=== PATIENT | male | born 1935 | race Caucasian/White ===

== ENCOUNTER 2016-07-15 23:03 | Inpatient (IN) | payer OTHER, BC ==
[~2016-07-15] VITALS: Ht 182.9 cm; Wt 127.8 kg
--- NOTE | ~2016-07-15 | EKG ---
[address] [address] ELECTROCARDIOGRAM REPORT Name: CAYLA ARCEO Room #: 213-P ADM IN M.R.#: [id number] Admission: 07/16/16 Attend Phys: Arabella Scanlon Discharge: Date of : 39 Report #: [id number] THIS REPORT FOR: //name// [facility] Test Date: 2016-07-16 Test Time: 06:03:37 Pat Name: CAYLA ARCEO Department: Room: 213 P Gender: M Manager Quality: JOE : 1935 Requested By: Peyton Whyte Order Number: [id number] MD: Gilmer Robert Measurements Intervals [place] Rate: 52 P: 7 NH: 190 QRS: -29 QRSD: 101 T: -16 QT: 451 QTc: 420 Interpretive Statements Sinus rhythm Borderline left axis deviation Abnormal R-wave progression, early transition Borderline T abnormalities, inferior leads No previous ECG available for comparison Electronically Signed On 07-16-2016 8:24:15 EMAIL PRODUCTION SPECIALIST by Gilmer Robert [email or web address] <ELECTRONICALLY SIGNED> By: Gilmer Robert MD 07/16/16 0824 2 2 Gilmer Robert MD /MARY
--- NOTE | ~2016-07-15 | H ---
[facility] [place] [address] HISTORY AND PHYSICAL Name: CAYLA ARCEO Room #: 213-P ADM IN M.R.#: [id number] Admission: 07/16/16 Attend Phys: Arabella Scanlon Discharge: Date of : 39 Report #: [id number] THIS REPORT FOR: //name// CC: Jian Salcedo DATE OF SERVICE: 07/16/2016 ATTENDING PHYSICIAN: Dr. Scanlon. PRIMARY CARE PHYSICIAN: Jian Conley. CHIEF COMPLAINT: Elevated troponin. HISTORY OF PRESENT ILLNESS: The patient is a 81-year-old male who initially presented to [facility] yesterday after having recent episode of some retrosternal chest pain. He thought it was related to a chest cold. He has been having a cough for the last 2 days and has been taking some DayQuil and take well and NyQuil. The pain was not necessarily worse with coughing. He did have an episode a sweating but he thought it was may the start of a fever. He denies any associated shortness of breath, nausea or vomiting. This pain resolved, but he wanted to make sure he was getting pneumonia, so he went to [facility] and was noted to have a mildly elevated troponin. He initially declined transfer or further cardiology evaluation. His next 2 sets of troponins had been increasing, the second was 1.92 and then the third was 3.42. He has continued to be chest pain free, he was started on a heparin drip as well as the nitroglycerin drip and eventually he did agree to get transferred here for cardiac evaluation. He denies any history of coronary artery disease or ever seeing a [facility] for having any cardiac testing. He was last seen here at [facility] in 04/2016 for a large kidney stone. He ended up having a stent placement. He was treated for acute on chronic renal failure as well. His creatinine had been up to 2.9. His metformin, lisinopril and hydrochlorothiazide were all discontinued. He is now resting comfortably and agreeable to further cardiac workup. PAST MEDICAL HISTORY: Hyperlipidemia, diabetes, hypothyroidism, chronic kidney disease stage 3, hypertension, GERD, obesity, obstructive sleep apnea for which he does not wear CPAP, nephrolithiasis, arthritis. PAST SURGICAL HISTORY: Left total knee replacement, inguinal hernia repair, eyelid surgery, right ureteral stent placement, rectal gland removal, TNA, and hand and finger reattachment, and pilonidal cyst drainage. ALLERGIES: None. [facility] [address] [place] [address] HISTORY AND PHYSICAL Name: CAYLA ARCEO Room #: 213-P [facility] IN M.R.#: [id number] Admission: 07/16/16 Attend Phys: Arabella Scanlon Discharge: Date of : 39 Report #: [id number] HOME MEDICATIONS: Fish oil one capsule daily, amlodipine 5 mg daily, Januvia 25 mg daily, and levothyroxine 200 mcg daily. SOCIAL HISTORY: The patient is retired and contraction worker. He is , but his lives at a long-term care facility after stroke. He currently lives with his son and [id number]. He is a never smoker, denies any alcohol use. FAMILY HISTORY: His father at the age of 67, presumably from an [place], otherwise no other family members have had heart disease. REVIEW OF SYSTEMS: Twelve point review of systems was reviewed with the patient, otherwise negative unless stated in the HPI. PHYSICAL EXAMINATION: GENERAL: The patient is an alert, obese male in no acute distress. VITAL SIGNS: Temperature 36.7, heart rate 55, respirations 24, blood pressure is 172/117, oxygen 93% on room air. HEENT: PERRLA. Sclerae are nonicteric. Oral mucosa is pink and moist. NECK: Supple, no JVD noted. CARDIOVASCULAR: Normal S1, S2. No murmurs, rubs or gallops. RESPIRATORY: Breath sounds are clear bilateral upper lobes. He is a very diminished absent breath sounds in the left lower lobe. Breathing is nonlabored. ABDOMEN: Obese, soft, nontender, nondistended with positive bowel sounds. VASCULAR: 1+ bilateral ankle edema. Pedal pulses are 1+. NEUROLOGIC: The patient is alert and oriented x 3. Speech is clear. He is answering questions appropriately and following commands. No focal weakness noted. LABORATORY DATA AND DIAGNOSTICS: WBC is 10.4, hemoglobin is 14.7, platelets 209. Sodium 138, potassium 4.7, BUN 24, creatinine 1.8, glucose is 260, LFTs are within normal limits. Troponins at [place] were 0.17, 1.9 and 3.42. An EKG was showing sinus bradycardia, rate of 53, no ischemic changes. Chest x-ray showed an elevation of the left hemidiaphragm. No infiltrates. ASSESSMENT AND PLAN: 1. Non-ST elevation myocardial infarction. The patient was transferred here for further cardiac evaluation. We will continue with nitroglycerin drip and heparin drip and check another troponin and EKG this morning and consult cardiology for possible cardiac catheterization, he does have mild chronic kidney disease, so we will gently hydrate prior to catheterization. 2. Diabetes type 2. Blood sugars are elevated. We will check hemoglobin A1c. He had been on Januvia, which unfortunately we cannot continue here because it is nonformulary, we will add a sliding scale insulin and check blood sugars a.c. [facility] [place] [address] HISTORY AND PHYSICAL Name: CAYLA ARCEO Room #: 213-P ADM IN M.R.#: [id number] Admission: 07/16/16 Attend Phys: Arabella Scanlon Discharge: Date of : 37 Report #: [id number] and at bedtime. 3. Chronic kidney disease stage III. Creatinine is 1.8. Previously was 2.9 in April and meds were changed so it is improving, we will follow labs. 4. Hypothyroidism. Continue Synthroid at home. 5. Hyperlipidemia. Check a lipid panel and continue home medications. 6. Obesity. 7. Hypertension. Blood pressure is stable. Continue Norvasc at home. 8. Deep vein thrombosis prophylaxis. Continue with Lovenox. We will continue to follow the patient closely throughout the hospitalization and make changes based on clinical status. <ELECTRONICALLY SIGNED> By: ROMERO Jean Baptiste 07/18/16 0646 0159 [id number] ROMERO Jean Baptiste /nt
--- NOTE | ~2016-07-15 | HC ---
[facility] [place] [address] CONSULTATION Name: CAYLA ARCEO Room #: 213-P ADM IN M.R.#: [id number] Admission: 07/16/16 Attend Phys: Arabella Collins Idanialupe Discharge: Date of : 37 Report #: [id number] THIS REPORT FOR: //name// CC: Jian Williameulalia Scanlon DATE OF SERVICE: 07/16/2016 REASON FOR CONSULTATION: Chest pain, elevated troponin. HISTORY OF PRESENT ILLNESS: This is a very pleasant 81-year-old male patient who was transferred from [facility] for elevated troponin. The patient was transferred for intermittent chest discomfort, but upon questioning he only had one episode of chest discomfort on Thursday of this week. He says he was lying in bed in the morning when he noted this chest discomfort that was a pressure sensation lasted only a few minutes, but did became diaphoretic. He did not have any increasing dyspnea during that episode, but the discomfort resolved. Subsequent to that, he has noted that he was having some increasing respiratory-type symptoms with coughing, nonobstructive cough, some chills, and some sweatiness. He is concerned because every winter he does develop pneumonic process and went and sought medical attention. He denies any exertional tightness, heaviness, fullness, orthopnea, PND, syncope, or near syncope. He does describe this dyspepsia that he has had in the past and states that it occurs intermittently but occurs at activity, mostly although it does occur postprandially sometimes. No dependent or nondependent is noted. He denied any chest discomfort since Thursday and he did have a rise in his troponins at [facility] from 1.92 to 3.42 respectively. Initially, he denied and refused cardiac evaluation to the enzymes alpa. PAST MEDICAL HISTORY: Significant for: 1. Hypothyroidism. 2. Hypertension. 3. Dyslipidemia. 4. Chronic kidney disease stage 3. 5. Diabetes mellitus. 6. Gastroesophageal reflux disease. 7. Obstructive sleep apnea and does use CPAP. 8. History of nephrolithiasis. 9. Degenerative joint disease. 10. Obesity. ALLERGIES: No known drug allergies. MEDICATIONS: At home are Januvia, Synthroid, fish oil, Norvasc, atorvastatin, metoprolol, amlodipine, insulin, and pantoprazole. [address] [address] CONSULTATION Name: CAYLA ARCEO Room #: 213-P [facility] IN .R.#: [id number] Admission: 07/16/16 Attend Phys: Arabella Scanlon Discharge: Date of : 39 Report #: [id number] PAST SURGICAL HISTORY: Significant for: 1. Total left knee replacement some 15 years ago. 2. Inguinal hernia repair. 3. Eyelid surgery. 4. Right ureteral stent placement. 5. Rectal gland removal. 6. T and A. 7. Hand and finger reattachment due to trauma. 8. Appendectomy. SOCIAL HISTORY: The patient does not smoke, consume alcohol. He does not follow a particular exercise regimen or dietary restriction. He does live with family. REVIEW OF SYSTEMS: Except for symptoms previously mentioned and those commensurate with comorbid state, the 10-point review of system is negative. LABORATORY DATA: Demonstrates a potassium of 4.6. BUN and creatinine of 26 and 1.8. Total cholesterol 164, LDL 98, HDL 42, and triglycerides of 123. H and H is 13.3 and 40.0 with a platelet count of 188,000. PHYSICAL EXAMINATION: GENERAL: Well-developed, well-nourished white male, resting comfortably in no acute distress. VITAL SIGNS: Noted and reviewed in the chart. HEENT: Normocephalic, atraumatic. Pupils are equal, round, reactive to light and accommodation. Extraocular muscles are intact. Sclerae and conjunctivae are anicteric. NECK: JVD is normal. Carotid upstrokes are bilaterally symmetrical. No bruits are heard. No thyromegaly. No lymphadenopathy. LUNGS: Clear to auscultation. No wheezes, rhonchi or crackles. No CVA tenderness. CARDIAC: Demonstrates a regular rhythm. Normal first and second heart sounds. No ventricular or atrial gallops, no rubs noted. No murmurs. No lifts or heaves, PMI normal. ABDOMEN: Soft, nontender, nondistended. Normal bowel sounds. EXTREMITIES: Without cyanosis, clubbing or edema. Distal pulses are intact. DTR symmetrical. NEUROLOGIC: Cranial nerves 2-12 are grossly normal and symmetrical. PSYCHIATRIC: Alert, oriented with normal affect. SKIN: Warm and dry. ELECTROCARDIOGRAM: Normal sinus rhythm, nonspecific ST-T wave changes. IMPRESSION AND PLAN: 1. Non-ST segment elevation myocardial infarction, currently asymptomatic, on [address] [address] CONSULTATION Name: CAYLA ARCEO Room #: 213-P ADM IN M.R.#: [id number] Admission: 07/16/16 Attend Phys: Arabella Scanlon Discharge: Date of : 39 Report #: [id number] heparin and IV nitroglycerin. I have discussed the options with him and even though he does have chronic kidney disease, it is advantageous to proceed invasively so we can delineate his coronary artery. The risks, complications, and alternatives of catheterization, angioplasty, and conscious sedation were discussed with the patient who understands and wishes to proceed. 2. Diabetes mellitus as per primary care, but we will monitor closely his status and his kidney function. We will hydrate pre and post-procedure. 3. Chronic kidney disease as above. 4. Hypertension seems to be well-controlled according to the patient at home. We will need to monitor closely for now and see whether he truly has good control on this. 5. Dyslipidemia. We discussed the [place] [employer] step 1 diet. In view of the fact that he is diabetic, we also discussed the Cut Off Diet, which is combination of the [place] Diabetic and the [place] [employer] recommendations. <ELECTRONICALLY SIGNED> By: Michel Shine MD 07/17/16 1133 10 0042 Michel Shine MD /nt
--- NOTE | ~2016-07-15 | 2DMMODE ---
[facility] [place] [address] 2 D/M-MODE ECHOCARDIOGRAM Name: CAYLA ARCEO Room #: 213-P ADM IN M.R.#: [id number] Admission: 07/16/16 Attend Phys: Arabella Emerson Discharge: Date of : 39 Date of Service: 07/16/16 1046 Report #: [id number] THIS REPORT FOR: //name// Transthoracic Echocardiography Ordering physician: Rosalind Parnell Referring physician: Rosalind Parnell Cena: KATHLEEN Carlos Indications/History: Non-STEMI, HTN, DM, HLP. BP: 171 / HR: 55bpm Height: 72in Weight: 270.4lb 91 Study data: M-mode, complete 2D, complete spectral Doppler, and color Doppler. Location: Bedside. Routine. Image quality was adequate. The study was technicallydifficult due to body habitus. No measurements were obtainable. The parasternal window was low, thus no M-mode measurements were recorded. 2D measurements Normal Normal LVID ED 36-57 IVS ED 6-11 LVID ES 23-40 LVPW ED 6-11 LA volume index 24ml/m2 16-28 AoRoot diam ED 21-37 LVOT diameter 18-23 Findings: Left ventricle: The cavity size was normal. Wall thickness was normal. Systolic function was normal. The estimated ejection fraction was in the range of 55% to 60%. Wall motion was normal. Right ventricle: The cavity size was normal. Systolic function was normal. Right atrium: The atrium was normal in size. Left atrium: The atrium was normal in size. Volume index: 24ml/m2 (S). Aortic valve: Mildly calcified leaflets. Doppler: There was no stenosis. No regurgitation. Peak velocity: [facility] [address] [place] [address] 2 D/M-MODE ECHOCARDIOGRAM Name: CAYLA ARCEO Room #: 213-P ADM IN M.R.#: [id number] Admission: 07/16/16 Attend Phys: Arabella Emerson Discharge: Date of : 39 Date of Service: 07/16/16 1046 Report #: [id number] 137cm/s (S). Mitral valve: Structurally normal valve. Doppler: There was no evidence for stenosis. No regurgitation. Peak E-wave velocity: 59.1cm/s. Peak A-wave velocity: 93.7cm/s. Tricuspid valve: Structurally normal valve. Doppler: There was no evidence for stenosis. No regurgitation. Pulmonic valve: Structurally normal valve. Doppler: There was no evidence for stenosis. No regurgitation. Pericardium: There was no pericardial effusion. Aorta: Aortic root: The aortic root was normal in size. Pulmonary artery: Pressure could not be reliably determined due to minimal or absent tricuspid insufficiency jet, but pulmonary hypertension was not suggested. Diastolic function: Doppler parameters are consistent with abnormal left ventricular relaxation (grade 1 diastolic dysfunction). Systemic veins: Inferior vena cava: The vessel was normal in size; the respirophasic diameter changes were in the normal range (= 50%). Conclusions 1. Left ventricle: The cavity size was normal. Wall thickness was normal. Systolic function was normal. The estimated ejection fraction was in the range of 55% to 60%. 2. Aortic valve: Mildly calcified leaflets. 3. Mitral valve: Structurally normal valve. No regurgitation. 4. Tricuspid valve: Structurally normal valve. 5. Pulmonary arteries: Pressure could not be reliably determined due to minimal or absent tricuspid insufficiency jet, but pulmonary hypertension was not suggested. <ELECTRONICALLY SIGNED> By: Michel Shine MD 07/16/16 1244 1046 1244 Michel Shine MD /masha
--- NOTE | ~2016-07-15 | CATHLAB ---
[facility] [place] [address] INVASIVE PROCEDURE REPORT Name: CAYLA ARCEO Room #: 213-P [facility] IN M.R.#: [id number] Admission: 07/16/16 Attend Phys: Arabella Emerson Discharge: Date of : 39 Date of Service: 07/16/162050 Report #: [id number] THIS REPORT FOR: //name// CC: Jian Scanlon DATE OF SERVICE: 07/16/2016 PROCEDURES: 1. Left heart catheterization. 2. Selective left and right coronary angiography. 3. Measurement of left ventricular end diastolic pressures. 4. Supervision of conscious sedation. RECORDS MANAGEMENT ASSISTANT: Michel Shine M.D. INDICATIONS: This 81-year-old male patient with significant cardiovascular risk factors and a non-ST segment elevation myocardial infarction. BRIEF DESCRIPTION OF PROCEDURE: After informed consent was obtained, the patient was brought to the cardiac catheterization laboratory in stable condition. The patient's right groin was prepped and draped in the usual sterile manner after which lidocaine was then instilled. Utilizing a modified Seldinger technique, the right femoral artery was then accessed. Under fluoroscopic visualization using selective coronary catheters, the right and left coronaries were opacified and visualized. The left ventriculogram was likewise imaged per standard protocol with EDP being measured. Subsequent to this, the sheath was removed, hemostasis achieved. The patient tolerated the procedure well. There were no complications. FINDINGS: FLUOROSCOPY: Under fluoroscopic visualization, there was extensive calcific plaquing along the epicardial coronary arteries. No significant plaquing on the valvular intramyocardial structures of the heart. HEMODYNAMICS: A. Preprocedure aortic pressure of 148/74. B. Left ventricular end diastolic pressure is 24 to 26. ANGIOGRAPHY: This is a right coronary dominant system. A. Left main is of normal origin and caliber, has a distal tapering of less than 30%. It bifurcates into the left anterior descending and left circumflex. B. Left anterior descending is of moderate caliber vessel, which courses in the anterior interventricular sulcus and has a 90% to 95% focal lesion. There is also a region of 75 to 80% beyond this involving the proximal mid LAD with the origin of moderate first diagonal branch, which has a 75% proximal lesion. [facility] [address] [address] INVASIVE PROCEDURE REPORT Name: CAYLA ARCEO Room #: 213-P [facility] IN M.R.#: [id number] Admission: 07/16/16 Attend Phys: Arabella Emerson Discharge: Date of : 39 Date of Service: 07/16/162050 Report #: [id number] vessel then continues on quite tortuous, but there is a mid portion of approximately 90% stenosis noted. It then again reconstitutes and has a 90% lesion prior to its termination at the inferior posterior apical wall. C. Left circumflex is a moderate caliber vessel, courses posteriorly, giving rise to lateral wall marginal branch, has a 70% proximal lesion beyond which is free of high-grade disease. D. Right coronary artery is a large caliber dominant vessel, which has a echeverria's crook deformity proximally and has 30% lesion. It then continues posteriorly where there is a 50% lesion in its distal third, terminating is a small posterolateral wall branch. The posterior descending artery appears to be just a string and no collaterals from left to right were identified. IMPRESSION: 1. Coronary artery disease, significant at least 2-vessel with poor percutaneous prognosis ____ long-term success. 2. Abnormal hemodynamics with elevated left ventricular end-diastolic pressures. <ELECTRONICALLY SIGNED> By: Michel Shine MD 07/17/16 1133 50 0140 Michel Shine MD /nt
[~2016-07-15 23:03] MED LIST: AMLODIPINE BESYL5 M1 PO; FISH OIL 1,0001 EAC5 PO; GLUCOPHAGE500 MG PO; GLYBURIDE 5 MG T5 M1 PO; JANUVIA25 MG; LEVOTHROID175 MCG PO; LEVOTHYROXINE0.2 M1 PO; LORTAB 5-500 T1 EAC1 PO; ZESTORETIC 20-1 EAC4 PO
[2016-07-16] VITALS (7 sets, daily range): BP systolic 114–178; BP diastolic 68–117
[2016-07-16 01:42] LABS: HEMATOCRIT 40.1 % (42.0-52.0); HEMOGLOBIN 13.3 gm/dL (14.0-18.0); MCH 30.6 pg (26.0-34.0); MCHC 33.1 % (28.0-37.0); MCV 92.5 fL (80.0-100.0); RBC 4.34 mil/uL (4.50-6.00); RDW 13.9 % (10.5-14.5); WBC 8.5 thou/uL (4.0-11.0)
[2016-07-16 01:56] LABS: APTT 31.7 Seconds (24.5-32.8); PROTIME 10.5 Seconds (9.3-11.4)
[2016-07-16 01:57] LABS: ALBUMIN 3.5 g/dL (3.4-5.0); ALKALINE PHOSPHATASE 80 U/L (46-116); ANION GAP 11 mmol/L (7-16); BUN 26 mg/dL (7-18); CALCIUM 8.8 mg/dL (8.5-10.1); CHLORIDE 106 mmol/L (98-107); CHOLESTEROL 164 mg/dL (<200); CO2 26 mmol/L (21-32); CREATININE 1.8 mg/dL (0.6-1.3); GLUCOSE 184 mg/dL (70-99); HDL CHOLESTEROL 42 mg/dL (>40); LDL CHOLESTEROL 98 mg/dL (<100); POTASSIUM 4.6 mmol/L (3.5-5.1); SGOT 18 U/L (15-37); SGPT 20 U/L (30-65); SODIUM 143 mmol/L (136-145); TC:HDL 3.9 Ratio (Not establshd); TOTAL BILIRUBIN 0.3 mg/dL (<0.1-1.0); TOTAL PROTEIN 6.6 g/dL (6.4-8.2); TRIGLYCERIDE 123 mg/dL (<150); VLDL 25 mg/dL (<40)
[2016-07-16 02:02] LABS: TROPONIN-I 2.36 ng/mL (<0.04-0.07)
[2016-07-16 19:46] LABS: URINE BILIRUBIN NEGATIVE (Negative); URINE BLOOD NEGATIVE (Negative); URINE COLOR YELLOW; URINE GLUCOSE-RANDOM* NEGATIVE (Negative); URINE KETONES NEGATIVE (Negative); URINE LEUKOCYTES-REFLEX NEGATIVE (Negative); URINE PROTEIN (DIPSTICK) NEGATIVE (Negative); URINE SPECIFIC GRAVITY 1.015 (1.003-1.035); URINE UROBILINOGEN 0.2 E.U./dl (0.2-1.0)
[2016-07-16 20:29] LABS: HEMATOCRIT 37.5 % (42.0-52.0); HEMOGLOBIN 12.6 gm/dL (14.0-18.0); MCH 30.8 pg (26.0-34.0); MCHC 33.6 % (28.0-37.0); MCV 91.5 fL (80.0-100.0); RBC 4.09 mil/uL (4.50-6.00); WBC 7.7 thou/uL (4.0-11.0)
[2016-07-17 03:36] LABS: ABSOLUTE NEUTROPHILS 5.3 thou/uL (1.4-8.2); BASOPHILS 0.6 % (0.0-2.0); EOSINOPHILS 4.4 % (0.0-3.0); HEMATOCRIT 30.1 % (42.0-52.0); LYMPHOCYTES 21.3 % (24.0-44.0); MCH 31.5 pg (26.0-34.0); MCHC 34.2 % (28.0-37.0); MCV 91.9 fL (80.0-100.0); MONOCYTES 7.4 % (1.0-8.0); PLATELET COUNT 153 thou/uL (150-400); POLYS 66.3 % (36.0-66.0); RBC 3.28 mil/uL (4.50-6.00); RDW 13.9 % (10.5-14.5)
[2016-07-17 03:41] LABS: HEMOGLOBIN 10.3 gm/dL (14.0-18.0); MANUAL DIFF NO
[2016-07-17 04:19] LABS: ALBUMIN 2.6 g/dL (3.4-5.0); CALCIUM 6.9 mg/dL (8.5-10.1); CREATININE 1.3 mg/dL (0.6-1.3); POTASSIUM 3.7 mmol/L (3.5-5.1)
[2016-07-17 04:21] LABS: TROPONIN-I 0.66 ng/mL (<0.04-0.07)
[2016-07-17 04:35] VITALS: BP 122/74
[2016-07-17 07:53] VITALS: BP 145/66
[2016-07-17 12:48] VITALS: BP 162/79
[2016-07-17 19:42] VITALS: BP 136/73
[2016-07-18 04:10] VITALS: BP 141/75
[2016-07-18 07:30] VITALS: BP 167/80
[2016-07-18] MEDS ORDERED: LIPITOR10 MG PO (09:53)
[2016-07-18] MEDS ORDERED: CLOPIDOGREL75 MG PO (09:53)
[2016-07-18] MEDS ORDERED: ASPIRIN325 PO (09:54)
[2016-07-18] MEDS ORDERED: LOPRESSOR50 PO (09:54)
[2016-07-18 12:43] VITALS: BP 167/80
== END 2016-07-18 13:54 | disposition home or self-care (01) | DRG 280 ==
LOC: 2N 23:03
PROVIDERS: Hospitalist; Nurse Practitioner Acute Care; Physician Assistant
PROC: B211YZZ Fluoroscopy of Multiple Coronary Arteries using Other Contrast (ICD-10-PCS; principal; 2016-07-16)
PROC: B2151ZZ Fluoroscopy of Left Heart using Low Osmolar Contrast (ICD-10-PCS; 2016-07-16)
PROC: 4A023N7 Measurement of Cardiac Sampling and Pressure, Left Heart, Percutaneous Approach (ICD-10-PCS; 2016-07-16)
DX: I21.4 Non-ST elevation (NSTEMI) myocardial infarction (principal); E43 Unspecified severe protein-calorie malnutrition; N17.0 Acute kidney failure with tubular necrosis; E03.9 Hypothyroidism, unspecified; N18.3 Chronic kidney disease, stage 3 (moderate); E11.22 Type 2 diabetes mellitus with diabetic chronic kidney disease; G47.33 Obstructive sleep apnea (adult) (pediatric); K21.9 Gastro-esophageal reflux disease without esophagitis; I25.10 Atherosclerotic heart disease of native coronary artery without angina pectoris; M19.90 Unspecified osteoarthritis, unspecified site; I12.9 Hypertensive chronic kidney disease with stage 1 through stage 4 chronic kidney disease, or unspecified chronic kidney disease; E78.5 Hyperlipidemia, unspecified; Z96.652 Presence of left artificial knee joint; E66.9 Obesity, unspecified; Z68.38 Body mass index [BMI] 38.0-38.9, adult; Z87.442 Personal history of urinary calculi; Z79.899 Other long term (current) drug therapy; Z98.890 Other specified postprocedural states; Z79.01 Long term (current) use of anticoagulants; Z90.49 Acquired absence of other specified parts of digestive tract; Z79.4 Long term (current) use of insulin
CPT/HCPCS: 10081